=== PATIENT | female | born 1970 | race Caucasian/White ===

== ENCOUNTER 2020-04-21 06:29 | Emergency (ER) | payer OTHER | END 2020-04-21 08:10 | disposition home or self-care (01) | LOC: ER1 06:29 | DX: S90.32XA Contusion of left foot, initial encounter (principal); W22.8XXA Striking against or struck by other objects, initial encounter; Y92.009 Unspecified place in unspecified non-institutional (private) residence as the place of occurrence of the external cause | CPT/HCPCS: 73610; 73630; 99283 ==

== ENCOUNTER → 2021-04-13 | Outpatient (CLI) | payer OTHER | LOC: KOH-I 13:04 | DX: M25.531 Pain in right wrist (principal) | CPT/HCPCS: 73100 ==